=== PATIENT | male | born 1950 | race Caucasian/White ===

== ENCOUNTER 2018-10-24 17:59 | Emergency (ER) | payer MEDICARE ==
[2018-10-24] MEDS ORDERED: Fentanyl 100 MCG/2 ML VIAL ONE (18:50)
[2018-10-24] MEDS ORDERED: Ketorolac Tromethamine 30 MG/ML VIAL ONE (18:51)
[2018-10-24 18:58] LABS: Hemoglobin 10.4 g/dL (14.0-18.0); Mean Corpuscular HGB CONC 36.5 g/dL (32.0-36.0); Mean Corpuscular Hemoglobin 29.9 pg (27.0-31.0); Mean Corpuscular Volume 81.9 fL (78.0-98.0); Mean Platelet Volume 6.3 fL (7.4-10.4); Platelet Count 226 thou/uL (130-400); RBC Distribution Width 12.4 % (11.5-14.5); Red Blood Cell (RBC) Count 3.49 mill/uL (4.70-6.10); White Blood Cell (WBC) Count 7.2 thou/uL (4.8-10.8)
[2018-10-24 19:06] LABS: ALT (SGPT) 13 U/L (8-55); AST (SGOT) 18 U/L (5-34); Alkaline Phosphatase 73 U/L (40-150); Anion Gap 18 mmol/L (10-20); BUN (Urea Nitrogen) 41 mg/dL (8.4-25.7); Bilirubin, Total 0.5 mg/dL (0.2-1.2); Calc. Creatinine Clearance 0 mL/min (70-130); Calcium 10.5 mg/dL (7.8-10.44); Carbon Dioxide 29 mmol/L (23-31); Chloride 89 mmol/L (98-107); Estimated GFR-MDRD 28; Globulin 4.1 g/dL (2.4-3.5); Glucose 101 mg/dL (80-115); Protein, Total 8.1 g/dL (5.8-8.1); Sodium 132 mmol/L (136-145)
[2018-10-24 19:11] LABS: #Basophils 0.1 thou/uL (0.0-0.2); #Lymphocytes 0.3 thou/uL (1.20-3.40); #Monocytes 0.6 thou/uL (0.11-0.59); #Neutrophils 6.3 thou/uL (1.40-6.50); %Basophils 0.9 % (0.0-1.0); %Eosinophils 0.3 % (0.0-10.0); %Monocytes 7.9 % (0.0-10.0); %Neutrophils 86.9 % (42.0-75.0)
[2018-10-24 21:05] LABS: Bilirubin Small (Negative); Blood, Urine Negative (Negative); Clarity Clear (Clear); Glucose, Urine (Dipstick) Negative (Negative); Leukocyte Negative (Negative); Nitrite Negative (Negative); Protein, Urine (Dipstick) Trace mg/dL (Neg-Trace); Specific Gravity, Urine 1.015 (1.005-1.030)
== END 2018-10-24 21:40 | disposition home or self-care (01) ==
LOC: BURERS 17:59
DX: E86.0 Dehydration (principal); D64.9 Anemia, unspecified; M54.5 Low back pain; I10 Essential (primary) hypertension; I25.2 Old myocardial infarction; F17.210 Nicotine dependence, cigarettes, uncomplicated; Z79.899 Other long term (current) drug therapy
CPT/HCPCS: 80053; 81003; 85025; 96361; 96374; 96375; J1885; J3010

== ENCOUNTER 2018-11-05 11:18 | Inpatient (IN) | payer MEDICARE ==
[2018-11-05] MEDS ORDERED: Acetaminophen 325 MG TAB PO PRN (18:17)
[2018-11-05] MEDS ORDERED: Zolpidem Tartrate 5 MG TAB PO PRN (18:17)
[2018-11-05] MEDS ORDERED: Bisacodyl 10 MG SUPP PR PRN (18:17)
[2018-11-05] MEDS ORDERED: Ondansetron ODT 4 MG TAB SL PRN (18:17)
[2018-11-05] MEDS ORDERED: Ferrous Sulfate 325 MG TAB PO SCH (19:00)
[2018-11-05] MEDS: MAGNESIUM CHLORIDE 64 MG PO SCH (21:06)
[2018-11-05] MEDS: Colchicine 0.6 MG TAB PO SCH (21:27)
[2018-11-06] MEDS: Lisinopril 5 MG TAB PO SCH (09:08)
[2018-11-06] MEDS: Ferrous Sulfate 325 MG TAB PO SCH ×2 (09:08→18:17)
[2018-11-06] MEDS: Carvedilol 3.125 MG TAB PO SCH ×2 (09:09→18:16)
[2018-11-06] MEDS: Colchicine 0.6 MG TAB PO SCH ×2 (09:11→20:53)
[2018-11-06] MEDS: TURMERIC ROOT EXTRACT 500 MG PO SCH (09:14)
[2018-11-06] MEDS: MAGNESIUM CHLORIDE 64 MG PO SCH ×2 (09:14→20:54)
[2018-11-06] MEDS: GARLIC 1500 MG PO SCH (09:14)
[2018-11-06] MEDS: traMADol HCl 50 MG TAB PO PRN (09:16)
[2018-11-06] MEDS: Nicotine 21 MG PATCH TD SCH (14:31)
[2018-11-07] MEDS: Lisinopril 5 MG TAB PO SCH (08:58)
[2018-11-07] MEDS: Carvedilol 3.125 MG TAB PO SCH ×2 (09:00→17:56)
[2018-11-07] MEDS: Ferrous Sulfate 325 MG TAB PO SCH ×2 (09:01→17:56)
[2018-11-07] MEDS: GARLIC 1500 MG PO SCH (09:02)
[2018-11-07] MEDS: MAGNESIUM CHLORIDE 64 MG PO SCH ×2 (09:02→21:03)
[2018-11-07] MEDS: TURMERIC ROOT EXTRACT 500 MG PO SCH (09:02)
[2018-11-07] MEDS: traMADol HCl 50 MG TAB PO PRN (09:38)
--- NOTE | 2018-11-07 14:29 | HP ---
PRIMARY CARE PHYSICIAN: Dr. Lin in [place]. CHIEF COMPLAINT: Rehabilitation with physical, occupational and speech therapy. HISTORY OF PRESENT ILLNESS: Mr. Nolasco is a pleasant 68-year-old gentleman with coronary artery disease, cardiomyopathy with ejection fraction of 30-35% with AICD, hypertension, hyperlipidemia and supraglottic and pyriform sinus malignancy, status post chemotherapy and radiation treatment under Dr. Stark and Dr. Brown respectively with PEG tube. He was admitted twice for bleeding duodenal ulcer. His initial episode was October 25, his admitting hemoglobin was 6, he was adequately transfused with 6 units of blood. The vessel was cauterized. He was discharged with hemoglobin of 9.2. However, 2 days later, he returned for additional GI bleed. He underwent another EGD and noted further bleeding on the same site; the vessel was cauterized. He received additional blood transfusion ; his hemoglobin on discharge was 9. Due to his deconditioning from recent series of chemotherapy, radiation with poor intake causing significant weight loss complicated with life-threatening blood loss from duodenal ulcer, the patient is requiring further physical, occupational and speech therapy prior to his transitioning to home. He is working well with PT and OT. He was evaluated by dietitian today and recommended PEG tube for further nutrition. However, the patient preferred to eat, he is having pain in his ankles due to gout. He had slightly dark-colored stool this morning; of note, the patient is already taking iron supplement. PAST MEDICAL HISTORY: 1. Cardiomyopathy with EF of 30-35% status post AICD. 2. Hypertension. 3. Hyperlipidemia. 4. History of symptomatic anemia secondary to GI bleed. 5. Pyriform sinus and supraglottic malignancy. 6. Tobacco abuse. 7. Peripheral vascular disease. 8. Gout. PAST SURGICAL HISTORY: 1. AICD placement. 2. PEG tube placement. 3. Recent Mediport placement. 4. EGD x2. FAMILY HISTORY: Brother was diagnosed of lung cancer with metastasis. SOCIAL HISTORY: Known smoker, 1-2 cigarettes per day for 50 plus years. Denies recent alcohol or drug use. He lives by himself. He is a part-time employee of [email or web address] in [place]. CURRENT MEDICATIONS: 1. Tylenol 650 mg 1 tablet every 4 hours p.r.n. for pain. 2. Dulcolax 10 mg daily p.r.n. for constipation. 3. Coreg 3.125 mg 1 tablet b.i.d. 4. Colchicine 0.3 mg p.o. b.i.d. 5. Ferrous sulfate 325 mg b.i.d. with meals. 6. DuoNeb 1 neb every 6 hours p.r.n. for cough and wheezing. 7. Lisinopril 2.5 mg daily. 8. Nicotine patch 21 mg daily. 9. Zofran 4 mg every 6 hours p.r.n. for nausea and vomiting. 10. Protonix 40 mg b.i.d. 11. Tramadol 50 mg every 6 hours p.r.n. for pain. 12. Ambien 5 mg at bedtime p.r.n. for insomnia. ALLERGIES: CILOSTAZOL. REVIEW OF SYSTEMS: GENERAL: Positive for fatigue, positive for decreased appetite, positive for weight loss. Negative for fever or chills. HEENT: Negative for headaches. Negative for blurring of vision. Positive for painful and difficulty of swallowing. RESPIRATORY: Denies cough or wheezing. CARDIOVASCULAR: Negative for chest pain, negative for palpitations, negative for edema. GI: Reports occasional nausea, abdominal pain, recent history of GI bleed. Positive for loss of weight. GENITOURINARY: Negative for dysuria or polyuria. SKIN: Negative for rashes or lesions. MUSCULOSKELETAL: Positive for weakness. Positive for pain in both ankles secondary to gout. NEUROLOGICAL: Negative for numbness. Positive for weakness in both upper and lower extremities. PSYCHOLOGICAL: Denies anxiety or depression. PHYSICAL EXAMINATION: VITAL SIGNS: Blood pressure of 111/53, temperature of 98.1, pulse of 81, RR of 20, and O2 sat 97% on room air. GENERAL: The patient is alert and oriented, not in respiratory distress. HEENT: Normocephalic and atraumatic. Pale palpebral conjunctivae. Negative for tonsillopharyngeal congestion. NECK: Supple. Negative for lymphadenopathy. Negative for JVD. HEART: Regular rate and rhythm. Normal S1 and S2. No murmur, rubs, or gallops. LUNGS: Symmetrical expansion. Decreased breath sounds all throughout lung andrews. ABDOMEN: Soft. Normoactive bowel sounds. Nontender. No CVA tenderness. MUSCULOSKELETAL: Spontaneous movement of both upper and lower extremities. Positive for swelling of both ankles with mild tenderness. NEUROLOGIC: No focal deficits. Cranial nerves 2 through 12 intact. SKIN: No rashes. No lesions. Good skin turgor. PSYCH: Appropriate affect and demeanor. LABORATORY DATA: Reviewed. ASSESSMENT: 1. Physical deconditioning secondary to: a. Rapid weight loss due to dysphagia resulting from pyriform sinus and supraglottic malignancy. b. Life-threatening gastrointestinal bleed requiring multiple blood transfusions. 2. Cardiomyopathy with ejection fraction of 30-35% with automatic implantable cardioverter-defibrillator. 3. Hypertension. 4. Hyperlipidemia. 5. Gout. 6. Long history of smoking. PLAN: The patient was admitted for skilled for physical, occupational and speech therapy. Prognosis for significant improvement with reasonable time appears good. Due to his multiple comorbid condition, we will monitor for additional bleeding. He will participate with PT to address strength, range of motion, transfer training , gait transfer, and safety training with progression to home exercises. He will participate with OT to address ADLs. We will reconcile hospital medications and adjust dosage prior to his discharge. Case Management to address how the patient can be safely discharged to home. Job ID: [id number] MTDD
[2018-11-07] MEDS: Nicotine 21 MG PATCH TD SCH (15:47)
[2018-11-07] MEDS: Colchicine 0.6 MG TAB PO SCH (21:03)
[2018-11-08] MEDS: Carvedilol 3.125 MG TAB PO SCH ×2 (08:44→17:29)
[2018-11-08] MEDS: Lisinopril 5 MG TAB PO SCH (08:44)
[2018-11-08] MEDS: Ferrous Sulfate 325 MG TAB PO SCH ×2 (08:46→17:28)
[2018-11-08 09:45] LABS: #Basophils 0.1 thou/uL (0.0-0.2); #Eosinphils 0.1 thou/uL (0.0-0.7); #Lymphocytes 0.4 thou/uL (1.20-3.40); #Monocytes 0.6 thou/uL (0.11-0.59); #Neutrophils 5.3 thou/uL (1.40-6.50); %Basophils 1.5 % (0.0-1.0); %Eosinophils 2.1 % (0.0-10.0); %Lymphocytes 5.7 % (21.0-51.0); %Monocytes 9.6 % (0.0-10.0); %Neutrophils 81.1 % (42.0-75.0); Hemoglobin 10.5 g/dL (14.0-18.0); Mean Corpuscular HGB CONC 33.8 g/dL (32.0-36.0); Mean Corpuscular Hemoglobin 28.9 pg (27.0-31.0); Mean Corpuscular Volume 85.7 fL (78.0-98.0); Mean Platelet Volume 6.2 fL (7.4-10.4); Platelet Count 176 thou/uL (130-400); RBC Distribution Width 15.2 % (11.5-14.5); Red Blood Cell (RBC) Count 3.62 mill/uL (4.70-6.10); White Blood Cell (WBC) Count 6.5 thou/uL (4.8-10.8)
[2018-11-08] MEDS: GARLIC 1500 MG PO SCH (11:57)
[2018-11-08] MEDS: TURMERIC ROOT EXTRACT 500 MG PO SCH (11:58)
[2018-11-08] MEDS: MAGNESIUM CHLORIDE 64 MG PO SCH ×2 (11:58→21:49)
[2018-11-08] MEDS: Nicotine 21 MG PATCH TD SCH (14:50)
[2018-11-08] MEDS: Colchicine 0.6 MG TAB PO SCH (21:49)
[2018-11-09] MEDS: Carvedilol 3.125 MG TAB PO SCH ×2 (08:51→16:12)
[2018-11-09] MEDS: Lisinopril 5 MG TAB PO SCH (08:51)
[2018-11-09] MEDS: Ferrous Sulfate 325 MG TAB PO SCH ×2 (08:52→16:13)
[2018-11-09] MEDS: GARLIC 1500 MG PO SCH (08:54)
[2018-11-09] MEDS: MAGNESIUM CHLORIDE 64 MG PO SCH ×2 (12:11→20:03)
[2018-11-09] MEDS: TURMERIC ROOT EXTRACT 500 MG PO SCH (12:12)
[2018-11-09] MEDS: Nicotine 21 MG PATCH TD SCH (16:13)
[2018-11-09] MEDS: Colchicine 0.6 MG TAB PO SCH (20:03)
[2018-11-10] MEDS: Carvedilol 3.125 MG TAB PO SCH ×2 (09:17→17:16)
[2018-11-10] MEDS: Lisinopril 5 MG TAB PO SCH (09:17)
[2018-11-10] MEDS: Ferrous Sulfate 325 MG TAB PO SCH ×2 (09:20→17:18)
[2018-11-10] MEDS: TURMERIC ROOT EXTRACT 500 MG PO SCH (12:10)
[2018-11-10] MEDS: MAGNESIUM CHLORIDE 64 MG PO SCH ×2 (12:10→21:16)
[2018-11-10] MEDS: GARLIC 1500 MG PO SCH (12:10)
[2018-11-10] MEDS: Nicotine 21 MG PATCH TD SCH (13:56)
[2018-11-10] MEDS: traMADol HCl 50 MG TAB PO PRN (15:15)
[2018-11-10] MEDS: Colchicine 0.6 MG TAB PO SCH (21:13)
[2018-11-11] MEDS: Ferrous Sulfate 325 MG TAB PO SCH ×2 (09:02→16:09)
[2018-11-11] MEDS: Lisinopril 5 MG TAB PO SCH (09:03)
[2018-11-11] MEDS: Carvedilol 3.125 MG TAB PO SCH ×2 (09:04→16:09)
[2018-11-11] MEDS: GARLIC 1500 MG PO SCH (09:05)
[2018-11-11] MEDS: TURMERIC ROOT EXTRACT 500 MG PO SCH (09:05)
[2018-11-11] MEDS: MAGNESIUM CHLORIDE 64 MG PO SCH ×2 (09:05→22:20)
[2018-11-11] MEDS: traMADol HCl 50 MG TAB PO PRN (11:02)
[2018-11-11] MEDS: Nicotine 21 MG PATCH TD SCH (16:09)
[2018-11-11] MEDS: Colchicine 0.6 MG TAB PO SCH (20:31)
[2018-11-12] MEDS: Carvedilol 3.125 MG TAB PO SCH ×2 (09:20→18:42)
[2018-11-12] MEDS: Ferrous Sulfate 325 MG TAB PO SCH ×2 (09:20→18:42)
[2018-11-12] MEDS: GARLIC 1500 MG PO SCH (09:21)
[2018-11-12] MEDS: Lisinopril 5 MG TAB PO SCH (09:21)
[2018-11-12] MEDS: MAGNESIUM CHLORIDE 64 MG PO SCH ×2 (09:21→22:29)
[2018-11-12] MEDS: TURMERIC ROOT EXTRACT 500 MG PO SCH (09:22)
[2018-11-12] MEDS: Nicotine 21 MG PATCH TD SCH (14:45)
[2018-11-12] MEDS: Colchicine 0.6 MG TAB PO SCH (22:28)
[2018-11-12] MEDS: Senokot S 8.6-50 MG TAB PO PRN (22:38)
[2018-11-13] MEDS: Lisinopril 5 MG TAB PO SCH (10:09)
[2018-11-13] MEDS: Ferrous Sulfate 325 MG TAB PO SCH ×2 (10:09→17:23)
[2018-11-13] MEDS: Carvedilol 3.125 MG TAB PO SCH ×2 (10:10→17:23)
[2018-11-13] MEDS: GARLIC 1500 MG PO SCH (10:11)
[2018-11-13] MEDS: MAGNESIUM CHLORIDE 64 MG PO SCH ×2 (10:12→20:53)
[2018-11-13] MEDS: TURMERIC ROOT EXTRACT 500 MG PO SCH (10:13)
[2018-11-13] MEDS: Nicotine 21 MG PATCH TD SCH (15:45)
[2018-11-13] MEDS: traMADol HCl 50 MG TAB PO PRN (19:51)
[2018-11-13] MEDS: Colchicine 0.6 MG TAB PO SCH (20:52)
[2018-11-14] MEDS: Carvedilol 3.125 MG TAB PO SCH ×2 (08:35→16:35)
[2018-11-14] MEDS: Lisinopril 5 MG TAB PO SCH (08:35)
[2018-11-14] MEDS: Ferrous Sulfate 325 MG TAB PO SCH ×2 (08:39→16:36)
[2018-11-14] MEDS: TURMERIC ROOT EXTRACT 500 MG PO SCH (09:39)
[2018-11-14] MEDS: GARLIC 1500 MG PO SCH (09:40)
[2018-11-14] MEDS: MAGNESIUM CHLORIDE 64 MG PO SCH ×2 (09:40→20:58)
[2018-11-14] MEDS: Nicotine 21 MG PATCH TD SCH (15:07)
[2018-11-14] MEDS: Colchicine 0.6 MG TAB PO SCH (20:45)
[2018-11-15] MEDS: Lisinopril 5 MG TAB PO SCH (08:33)
[2018-11-15] MEDS: Carvedilol 3.125 MG TAB PO SCH ×2 (08:34→16:29)
[2018-11-15] MEDS: Ferrous Sulfate 325 MG TAB PO SCH ×2 (08:35→16:30)
[2018-11-15] MEDS: GARLIC 1500 MG PO SCH (08:35)
[2018-11-15] MEDS: MAGNESIUM CHLORIDE 64 MG PO SCH ×2 (08:35→21:27)
[2018-11-15] MEDS: TURMERIC ROOT EXTRACT 500 MG PO SCH (08:36)
[2018-11-15] MEDS: Nicotine 21 MG PATCH TD SCH (14:50)
[2018-11-15 17:13] VITALS: BMI 22.7
[2018-11-15] MEDS: Colchicine 0.6 MG TAB PO SCH (21:26)
[2018-11-15] MEDS: Senokot S 8.6-50 MG TAB PO PRN (21:32)
[2018-11-16] MEDS: Lisinopril 5 MG TAB PO SCH (08:51)
[2018-11-16] MEDS: Ferrous Sulfate 325 MG TAB PO SCH ×2 (08:52→17:24)
[2018-11-16] MEDS: Carvedilol 3.125 MG TAB PO SCH ×2 (08:52→17:25)
[2018-11-16] MEDS: TURMERIC ROOT EXTRACT 500 MG PO SCH (08:53)
[2018-11-16] MEDS: GARLIC 1500 MG PO SCH (08:53)
[2018-11-16] MEDS: MAGNESIUM CHLORIDE 64 MG PO SCH (08:53)
[2018-11-16] MEDS: Nicotine 21 MG PATCH TD SCH (15:39)
[2018-11-16] MEDS: Colchicine 0.6 MG TAB PO SCH (20:54)
[2018-11-17] MEDS: traMADol HCl 50 MG TAB PO PRN (08:53)
[2018-11-17] MEDS: Lisinopril 5 MG TAB PO SCH (08:57)
[2018-11-17] MEDS: Carvedilol 3.125 MG TAB PO SCH (08:58)
[2018-11-17] MEDS: Ferrous Sulfate 325 MG TAB PO SCH (08:59)
[2018-11-17] MEDS: Nicotine 21 MG PATCH TD SCH (14:39)
[2018-11-17 15:16] VITALS: BP 92/53; TEMP 97.7
== END 2018-11-17 14:45 | disposition home or self-care (01) | DRG 147 ==
LOC: BURMED 17:22
PROVIDERS: ADMIT Family Medicine; ATTEND Family Medicine
DX: C12 Malignant neoplasm of pyriform sinus (principal); K92.2 Gastrointestinal hemorrhage, unspecified; I42.9 Cardiomyopathy, unspecified; C32.1 Malignant neoplasm of supraglottis; R53.81 Other malaise; I10 Essential (primary) hypertension; I25.10 Atherosclerotic heart disease of native coronary artery without angina pectoris; E78.5 Hyperlipidemia, unspecified; I73.9 Peripheral vascular disease, unspecified; F17.210 Nicotine dependence, cigarettes, uncomplicated; M10.9 Gout, unspecified; Z92.21 Personal history of antineoplastic chemotherapy; Z92.3 Personal history of irradiation; Z95.810 Presence of automatic (implantable) cardiac defibrillator; Z93.1 Gastrostomy status; Z79.899 Other long term (current) drug therapy; Z88.8 Allergy status to other drugs, medicaments and biological substances; Z98.890 Other specified postprocedural states
CPT/HCPCS: 36415; 85025; J1642; J7620

== ENCOUNTER 2020-10-19 11:49 | Emergency (ER) | payer MEDICARE ==
[2020-10-19] MEDS ORDERED: Cefepime 2 GM VIAL ONE (12:51)
[2020-10-19] MEDS ORDERED: Sodium Chloride 0.9% 100 ML ONE (12:51)
[2020-10-19] MEDS ORDERED: Vancomycin 1.5 GRAM/300 ML BAG ONE (12:51)
[2020-10-19 13:01] LABS: ALT (SGPT) 13 U/L (8-55); AST (SGOT) 19 U/L (5-34); Albumin 3.7 g/dL (3.4-4.8); Alkaline Phosphatase 70 U/L (40-110); Anion Gap 15 mmol/L (10-20); BUN (Urea Nitrogen) 21 mg/dL (8.4-25.7); Bilirubin, Total 0.8 mg/dL (0.2-1.2); Calc. Creatinine Clearance 0 mL/min (70-130); Calcium 9.2 mg/dL (7.8-10.44); Carbon Dioxide 24 mmol/L (23-31); Chloride 91 mmol/L (98-107); Globulin 3.9 g/dL (2.4-3.5); Glucose 91 mg/dL (80-115); Potassium 3.4 mmol/L (3.5-5.1); Protein, Total 7.6 g/dL (5.8-8.1); Sodium 127 mmol/L (136-145)
[2020-10-19 13:07] LABS: #Lymphocytes 0.4 thou/uL (1.20-3.40); #Monocytes 0.4 thou/uL (0.11-0.59); #Neutrophils 3.8 thou/uL (1.40-6.50); %Basophils 0.6 % (0.0-1.0); %Eosinophils 0.4 % (0.0-10.0); %Lymphocytes 7.6 % (21.0-51.0); %Monocytes 8.7 % (0.0-10.0); %Neutrophils 82.7 % (42.0-75.0); Hemoglobin 9.8 g/dL (14.0-18.0); Mean Corpuscular HGB CONC 33.6 g/dL (32.0-36.0); Mean Corpuscular Hemoglobin 30.7 pg (27.0-31.0); Mean Corpuscular Volume 91.3 fL (78.0-98.0); Mean Platelet Volume 7.5 fL (7.4-10.4); Platelet Count 234 thou/uL (130-400); RBC Distribution Width 14.2 % (11.5-14.5); Red Blood Cell (RBC) Count 3.18 mill/uL (4.70-6.10); White Blood Cell (WBC) Count 4.6 thou/uL (4.8-10.8)
[2020-10-19 13:32] LABS: Lipase Less than 4 U/L (8-78)
[2020-10-19 15:30] LABS: SARS-CoV-2 NAA Rapid Test Not Detected (NotDetected)
--- NOTE | 2020-10-19 17:21 | RAD ---
PORTABLE CHEST: 10/19/20 An AP portable film at 1247 is compared with a 07/20/20 study. The heart is normal in size. There is no vascular congestion, edema, or pleural effusion. An AICD is in place. Previously, there were some areas of streaking in the lower lobes, but these are not apprec iated today. A very vague parenchymal density in the right upper lobe peripherally looks no different than before. Overall, the appearance of the chest has probably Improved slightly since the 07/20 exam . IMPRESSION: No definite acute finding. POS: HOME
== END 2020-10-19 15:20 | disposition short-term general hospital (02) ==
LOC: BURERS 11:49
DX: R53.1 Weakness (principal); D89.9 Disorder involving the immune mechanism, unspecified; I25.2 Old myocardial infarction; J44.9 Chronic obstructive pulmonary disease, unspecified; F17.210 Nicotine dependence, cigarettes, uncomplicated; I25.10 Atherosclerotic heart disease of native coronary artery without angina pectoris; Z92.21 Personal history of antineoplastic chemotherapy
CPT/HCPCS: 0240U; 71045; 83605; 83690; 84484; 85379; 87040; 93005; 94760; 96365; 96367; 99285; 36415; 80053; 84443; 85025; J0692; J3370; J3490

== ENCOUNTER 2020-11-30 12:35 | Inpatient (IN) | payer MEDICARE ==
[2020-11-30] MEDS ORDERED: Albuterol Sulfate 1.25 MG/3 ML NEB NEB PRN (18:16)
[2020-11-30] MEDS: Carvedilol 6.25 MG TAB PO SCH (21:06)
[2020-11-30] MEDS: Famotidine 20 MG TAB PO SCH (21:06)
[2020-11-30] MEDS: Magnesium Oxide 400 MG TAB PO SCH (21:07)
[2020-11-30] MEDS: Amoxicillin/Potassium Clav 875 MG TAB PO SCH (21:07)
[2020-11-30] MEDS: Mometasone/Formoterol 60 PUFF AER INH SCH (21:07)
[2020-12-01 05:17] LABS: ALT (SGPT) 9 U/L (8-55); AST (SGOT) 8 U/L (5-34); Albumin 2.9 g/dL (3.4-4.8); Alkaline Phosphatase 49 U/L (40-110); Anion Gap 13 mmol/L (10-20); BUN (Urea Nitrogen) 10 mg/dL (8.4-25.7); Bilirubin, Total 0.3 mg/dL (0.2-1.2); Calc. Creatinine Clearance 82 mL/min (70-130); Calcium 8.3 mg/dL (7.8-10.44); Carbon Dioxide 26 mmol/L (23-31); Chloride 99 mmol/L (98-107); Globulin 2.2 g/dL (2.4-3.5); Glucose 81 mg/dL (80-115); Potassium 3.8 mmol/L (3.5-5.1); Protein, Total 5.1 g/dL (5.8-8.1); Sodium 134 mmol/L (136-145)
[2020-12-01 06:00] LABS: Hemoglobin 7.5 g/dL (14.0-18.0); Mean Corpuscular HGB CONC 32.8 g/dL (32.0-36.0); Mean Corpuscular Hemoglobin 29.5 pg (27.0-31.0); Mean Corpuscular Volume 89.9 fL (78.0-98.0); Mean Platelet Volume 6.5 fL (7.4-10.4); Platelet Count 155 thou/uL (130-400); RBC Distribution Width 16.8 % (11.5-14.5); Red Blood Cell (RBC) Count 2.55 mill/uL (4.70-6.10); White Blood Cell (WBC) Count 3.2 thou/uL (4.8-10.8)
[2020-12-01 06:08] LABS: Anisocytosis SLIGHT = 6-15 cells (100X) (0-5/hpf); Band 4 % (5-11); Hypochromia SLIGHT = 6-15 cells (100X) (0-5/hpf); Lymphocytes 15 % (21-51); MDiff Complete? YES; Manual Diff?? YES; Monocytes 15 % (0-10); Myelocyte 2 % (0-0); Neutrophil 64 % (42-75)
[2020-12-01 06:09] LABS: Platelet Morphology Comment Appears Adequate; Polychromasia SLIGHT = 2-3 cells (100X) (0-2/hpf); Small Platelets SLIGHT
[2020-12-01] MEDS: Amoxicillin/Potassium Clav 875 MG TAB PO SCH ×2 (08:33→20:50)
[2020-12-01] MEDS: Ferrous Sulfate 325 MG TAB PO SCH (08:33)
[2020-12-01] MEDS: Famotidine 20 MG TAB PO SCH ×2 (08:34→20:50)
[2020-12-01] MEDS: Magnesium Oxide 400 MG TAB PO SCH ×2 (08:34→20:51)
[2020-12-01] MEDS: Folic Acid 1 MG TAB PO SCH (08:34)
[2020-12-01] MEDS: Cyanocobalamin (Vitamin B-12) 1,000 MCG TAB PO SCH (08:35)
[2020-12-01] MEDS: Carvedilol 6.25 MG TAB PO SCH ×2 (08:35→20:50)
[2020-12-01] MEDS: Midodrine HCl 5 MG TAB PO SCH (08:36)
[2020-12-01] MEDS: Mometasone/Formoterol 60 PUFF AER INH SCH ×2 (08:42→21:04)
[2020-12-01] MEDS: Sodium Chloride 1 GM TAB PO SCH (09:34)
[2020-12-01 13:10] LABS: Hemoglobin 8.1 g/dL (14.0-18.0); Platelet Count 154 thou/uL (130-400)
[2020-12-01] MEDS: Albuterol Sulfate 2.5 mg/3 ml Neb NEB PRN (13:20)
[2020-12-01 13:24] LABS: Calc. Creatinine Clearance 80 mL/min (70-130)
[2020-12-01] MEDS: Benzocaine 20% Spray 60 ML CAN FS PRN (15:09)
[2020-12-01] MEDS: Enoxaparin Sodium 40 MG/0.4 ML SYRINGE SC SCH (20:52)
[2020-12-02] MEDS: Sodium Chloride 1 GM TAB PO SCH (08:46)
[2020-12-02] MEDS: Famotidine 20 MG TAB PO SCH ×2 (08:46→21:11)
[2020-12-02] MEDS: Nicotine 14 MG PATCH TOP SCH (08:49)
[2020-12-02] MEDS: Folic Acid 1 MG TAB PO SCH (08:49)
[2020-12-02] MEDS: Ferrous Sulfate 325 MG TAB PO SCH (08:49)
[2020-12-02] MEDS: Amoxicillin/Potassium Clav 875 MG TAB PO SCH ×2 (08:49→21:12)
[2020-12-02] MEDS: Midodrine HCl 5 MG TAB PO SCH (08:49)
[2020-12-02] MEDS: Carvedilol 6.25 MG TAB PO SCH ×2 (08:50→21:11)
[2020-12-02] MEDS: Cyanocobalamin (Vitamin B-12) 1,000 MCG TAB PO SCH (08:50)
[2020-12-02] MEDS: Magnesium Oxide 400 MG TAB PO SCH ×2 (08:55→21:12)
[2020-12-02] MEDS: Mometasone/Formoterol 60 PUFF AER INH SCH ×2 (08:55→21:13)
[2020-12-02] MEDS: Enoxaparin Sodium 40 MG/0.4 ML SYRINGE SC SCH (21:13)
[2020-12-03] MEDS: Nicotine 14 MG PATCH TOP SCH (08:27)
[2020-12-03] MEDS: Folic Acid 1 MG TAB PO SCH (08:28)
[2020-12-03] MEDS: Carvedilol 6.25 MG TAB PO SCH ×2 (08:28→21:14)
[2020-12-03] MEDS: Amoxicillin/Potassium Clav 875 MG TAB PO SCH ×2 (08:28→21:06)
[2020-12-03] MEDS: Cyanocobalamin (Vitamin B-12) 1,000 MCG TAB PO SCH (08:28)
[2020-12-03] MEDS: Sodium Chloride 1 GM TAB PO SCH (08:33)
[2020-12-03] MEDS: Famotidine 20 MG TAB PO SCH ×2 (08:34→21:06)
[2020-12-03] MEDS: Ferrous Sulfate 325 MG TAB PO SCH (08:34)
[2020-12-03] MEDS: Magnesium Oxide 400 MG TAB PO SCH ×2 (08:35→21:07)
[2020-12-03] MEDS: Midodrine HCl 5 MG TAB PO SCH (08:36)
[2020-12-03] MEDS: Mometasone/Formoterol 60 PUFF AER INH SCH ×2 (08:41→21:07)
[2020-12-03] MEDS: Enoxaparin Sodium 40 MG/0.4 ML SYRINGE SC SCH (21:07)
[2020-12-03] MEDS ORDERED: Benzocaine 20% Spray 60 ML CAN ONE (21:35)
[2020-12-03] MEDS: Benzocaine 20% Spray 60 ML CAN FS PRN (21:40)
[2020-12-04 05:44] LABS: Hemoglobin 8.5 g/dL (14.0-18.0); Platelet Count 155 thou/uL (130-400)
[2020-12-04] MEDS: Mometasone/Formoterol 60 PUFF AER INH SCH ×2 (09:10→20:33)
[2020-12-04] MEDS: Famotidine 20 MG TAB PO SCH ×2 (09:13→20:32)
[2020-12-04] MEDS: Ferrous Sulfate 325 MG TAB PO SCH (09:13)
[2020-12-04] MEDS: Carvedilol 6.25 MG TAB PO SCH ×2 (09:13→20:32)
[2020-12-04] MEDS: Sodium Chloride 1 GM TAB PO SCH (09:14)
[2020-12-04] MEDS: Midodrine HCl 5 MG TAB PO SCH (09:14)
[2020-12-04] MEDS: Folic Acid 1 MG TAB PO SCH (09:15)
[2020-12-04] MEDS: Amoxicillin/Potassium Clav 875 MG TAB PO SCH ×2 (09:15→20:32)
[2020-12-04] MEDS: Magnesium Oxide 400 MG TAB PO SCH ×2 (09:15→20:32)
[2020-12-04] MEDS: Nicotine 14 MG PATCH TOP SCH (09:16)
[2020-12-04] MEDS: Cyanocobalamin (Vitamin B-12) 1,000 MCG TAB PO SCH (09:16)
[2020-12-04] MEDS: Enoxaparin Sodium 40 MG/0.4 ML SYRINGE SC SCH (20:32)
[2020-12-05] MEDS: Amoxicillin/Potassium Clav 875 MG TAB PO SCH ×2 (07:53→20:39)
[2020-12-05] MEDS: Nicotine 14 MG PATCH TOP SCH (07:53)
[2020-12-05] MEDS: Carvedilol 6.25 MG TAB PO SCH ×2 (07:53→20:40)
[2020-12-05] MEDS: Midodrine HCl 5 MG TAB PO SCH (07:56)
[2020-12-05] MEDS: Ferrous Sulfate 325 MG TAB PO SCH (07:56)
[2020-12-05] MEDS: Sodium Chloride 1 GM TAB PO SCH (07:56)
[2020-12-05] MEDS: Famotidine 20 MG TAB PO SCH ×2 (07:57→20:40)
[2020-12-05] MEDS: Magnesium Oxide 400 MG TAB PO SCH ×2 (07:57→20:40)
[2020-12-05] MEDS: Folic Acid 1 MG TAB PO SCH (07:58)
[2020-12-05] MEDS: Docusate 100 MG CAP PO SCH ×2 (08:00→20:39)
[2020-12-05] MEDS: Cyanocobalamin (Vitamin B-12) 1,000 MCG TAB PO SCH (08:00)
[2020-12-05] MEDS: Mometasone/Formoterol 60 PUFF AER INH SCH ×2 (08:09→20:41)
[2020-12-05] MEDS: Enoxaparin Sodium 40 MG/0.4 ML SYRINGE SC SCH (20:40)
[2020-12-06] MEDS: Magnesium Oxide 400 MG TAB PO SCH ×2 (09:28→20:37)
[2020-12-06] MEDS: Nicotine 14 MG PATCH TOP SCH (09:28)
[2020-12-06] MEDS: Docusate 100 MG CAP PO SCH ×2 (09:29→20:37)
[2020-12-06] MEDS: Sodium Chloride 1 GM TAB PO SCH (09:29)
[2020-12-06] MEDS: Amoxicillin/Potassium Clav 875 MG TAB PO SCH ×2 (09:29→20:37)
[2020-12-06] MEDS: Famotidine 20 MG TAB PO SCH ×2 (09:29→20:37)
[2020-12-06] MEDS: Carvedilol 6.25 MG TAB PO SCH ×2 (09:29→20:37)
[2020-12-06] MEDS: Midodrine HCl 5 MG TAB PO SCH (09:30)
[2020-12-06] MEDS: Cyanocobalamin (Vitamin B-12) 1,000 MCG TAB PO SCH (09:31)
[2020-12-06] MEDS: Folic Acid 1 MG TAB PO SCH (09:31)
[2020-12-06] MEDS: Ferrous Sulfate 325 MG TAB PO SCH (09:32)
[2020-12-06] MEDS: Mometasone/Formoterol 60 PUFF AER INH SCH ×2 (09:36→20:38)
[2020-12-06 10:58] VITALS: BMI 18.6
[2020-12-06] MEDS: Enoxaparin Sodium 40 MG/0.4 ML SYRINGE SC SCH (20:36)
[2020-12-07 05:26] LABS: Hemoglobin 8.3 g/dL (14.0-18.0); Platelet Count 132 thou/uL (130-400)
[2020-12-07] MEDS: Nicotine 14 MG PATCH TOP SCH (09:10)
[2020-12-07] MEDS: Docusate 100 MG CAP PO SCH ×2 (09:10→20:46)
[2020-12-07] MEDS: Sodium Chloride 1 GM TAB PO SCH (09:10)
[2020-12-07] MEDS: Amoxicillin/Potassium Clav 875 MG TAB PO SCH (09:11)
[2020-12-07] MEDS: Famotidine 20 MG TAB PO SCH ×2 (09:11→20:47)
[2020-12-07] MEDS: Magnesium Oxide 400 MG TAB PO SCH ×2 (09:11→20:46)
[2020-12-07] MEDS: Folic Acid 1 MG TAB PO SCH (09:11)
[2020-12-07] MEDS: Ferrous Sulfate 325 MG TAB PO SCH (09:12)
[2020-12-07] MEDS: Cyanocobalamin (Vitamin B-12) 1,000 MCG TAB PO SCH (09:12)
[2020-12-07] MEDS: Midodrine HCl 5 MG TAB PO SCH (09:12)
[2020-12-07] MEDS: Mometasone/Formoterol 60 PUFF AER INH SCH ×2 (09:14→20:59)
[2020-12-07] MEDS: Carvedilol 6.25 MG TAB PO SCH ×2 (09:30→20:47)
[2020-12-07] MEDS: Enoxaparin Sodium 40 MG/0.4 ML SYRINGE SC SCH (20:46)
[2020-12-08] MEDS: Midodrine HCl 5 MG TAB PO SCH (09:01)
[2020-12-08] MEDS: Famotidine 20 MG TAB PO SCH ×2 (09:01→21:35)
[2020-12-08] MEDS: Cyanocobalamin (Vitamin B-12) 1,000 MCG TAB PO SCH (09:02)
[2020-12-08] MEDS: Sodium Chloride 1 GM TAB PO SCH (09:02)
[2020-12-08] MEDS: Docusate 100 MG CAP PO SCH ×2 (09:02→21:35)
[2020-12-08] MEDS: Magnesium Oxide 400 MG TAB PO SCH ×2 (09:02→21:36)
[2020-12-08] MEDS: Carvedilol 6.25 MG TAB PO SCH ×2 (09:02→21:35)
[2020-12-08] MEDS: Ferrous Sulfate 325 MG TAB PO SCH (09:03)
[2020-12-08] MEDS: Folic Acid 1 MG TAB PO SCH (09:04)
[2020-12-08] MEDS: Nicotine 14 MG PATCH TOP SCH (09:05)
[2020-12-08] MEDS: Mometasone/Formoterol 60 PUFF AER INH SCH ×2 (09:09→21:37)
[2020-12-08] MEDS: Albuterol Sulfate 2.5 mg/3 ml Neb NEB PRN (09:17)
[2020-12-08] MEDS ORDERED: Amoxicillin/Potassium Clav 875 MG TAB PO SCH (13:00)
--- NOTE | 2020-12-08 13:13 | RAD ---
CHEST 2 VIEWS: Date: 12/08/2020 Comparison is made with the prior study of 11/27/2020. FINDINGS: The basilar infiltrates seen previously are still present, but have definitely improved in the interv al. The right lower lobe infiltrate, in particular, is much better, and the left lower lobe is slight ly better. There is a patchy area in the right upper lobe that shows minimal change in the interval. No new infiltrates are seen. The heart size remains normal. The lungs are hyperexpanded, but no effus ions are seen. A cardiac pacer remains in place. IMPRESSION: Improving basilar infiltrates, particularly on the right side. POS: HOME
[2020-12-08] MEDS: Enoxaparin Sodium 40 MG/0.4 ML SYRINGE SC SCH (21:34)
[2020-12-08] MEDS: Amoxicillin/Potassium Clav 875 MG TAB PO SCH (21:36)
[2020-12-09] MEDS: Ferrous Sulfate 325 MG TAB PO SCH (08:24)
[2020-12-09] MEDS: Cyanocobalamin (Vitamin B-12) 1,000 MCG TAB PO SCH (08:25)
[2020-12-09] MEDS: Docusate 100 MG CAP PO SCH ×2 (08:25→23:28)
[2020-12-09] MEDS: Amoxicillin/Potassium Clav 875 MG TAB PO SCH ×2 (08:25→23:27)
[2020-12-09] MEDS: Famotidine 20 MG TAB PO SCH ×2 (08:25→23:28)
[2020-12-09] MEDS: Sodium Chloride 1 GM TAB PO SCH (08:26)
[2020-12-09] MEDS: Folic Acid 1 MG TAB PO SCH (08:26)
[2020-12-09] MEDS: Carvedilol 6.25 MG TAB PO SCH ×2 (08:26→23:33)
[2020-12-09] MEDS: Magnesium Oxide 400 MG TAB PO SCH ×2 (08:26→23:37)
[2020-12-09] MEDS: Midodrine HCl 5 MG TAB PO SCH (08:26)
[2020-12-09] MEDS: Mometasone/Formoterol 60 PUFF AER INH SCH ×2 (08:34→23:37)
[2020-12-09] MEDS: Nicotine 14 MG PATCH TOP SCH (08:34)
[2020-12-09] MEDS: Enoxaparin Sodium 40 MG/0.4 ML SYRINGE SC SCH (23:28)
[2020-12-10 04:58] LABS: Hemoglobin 8.1 g/dL (14.0-18.0); Platelet Count 164 thou/uL (130-400)
[2020-12-10 05:01] LABS: Calc. Creatinine Clearance 68 mL/min (70-130)
[2020-12-10] MEDS: Carvedilol 6.25 MG TAB PO SCH ×2 (09:15→20:06)
[2020-12-10] MEDS: Ferrous Sulfate 325 MG TAB PO SCH (09:15)
[2020-12-10] MEDS: Folic Acid 1 MG TAB PO SCH (09:15)
[2020-12-10] MEDS: Sodium Chloride 1 GM TAB PO SCH (09:15)
[2020-12-10] MEDS: Cyanocobalamin (Vitamin B-12) 1,000 MCG TAB PO SCH (09:15)
[2020-12-10] MEDS: Docusate 100 MG CAP PO SCH ×2 (09:15→20:06)
[2020-12-10] MEDS: Midodrine HCl 5 MG TAB PO SCH (09:21)
[2020-12-10] MEDS: Magnesium Oxide 400 MG TAB PO SCH ×2 (09:21→20:06)
[2020-12-10] MEDS: Famotidine 20 MG TAB PO SCH ×2 (09:22→20:05)
[2020-12-10] MEDS: Amoxicillin/Potassium Clav 875 MG TAB PO SCH ×2 (09:22→20:06)
[2020-12-10] MEDS: Mometasone/Formoterol 60 PUFF AER INH SCH ×2 (09:23→20:10)
[2020-12-10] MEDS: Nicotine 14 MG PATCH TOP SCH (09:24)
[2020-12-10] MEDS ORDERED: Enoxaparin Sodium 100 MG/ML SYRINGE ONE (19:20)
[2020-12-10] MEDS: Enoxaparin Sodium 40 MG/0.4 ML SYRINGE SC SCH (20:07)
[2020-12-10] MEDS ORDERED: Enoxaparin Sodium 100 MG/ML SYRINGE SC SCH (21:00)
[2020-12-11] MEDS ORDERED: Carvedilol 6.25 MG TAB PO SCH (06:53)
[2020-12-11] MEDS: Magnesium Oxide 400 MG TAB PO SCH ×2 (08:22→21:43)
[2020-12-11] MEDS: Midodrine HCl 5 MG TAB PO SCH (08:22)
[2020-12-11] MEDS: Sodium Chloride 1 GM TAB PO SCH (08:23)
[2020-12-11] MEDS: Cyanocobalamin (Vitamin B-12) 1,000 MCG TAB PO SCH (08:23)
[2020-12-11] MEDS: Amoxicillin/Potassium Clav 875 MG TAB PO SCH ×2 (08:23→21:42)
[2020-12-11] MEDS: Famotidine 20 MG TAB PO SCH ×2 (08:23→21:43)
[2020-12-11] MEDS: Ferrous Sulfate 325 MG TAB PO SCH (08:23)
[2020-12-11] MEDS: Carvedilol 3.125 MG TAB PO SCH ×2 (08:23→21:42)
[2020-12-11] MEDS: Docusate 100 MG CAP PO SCH ×2 (08:23→21:44)
[2020-12-11] MEDS: Folic Acid 1 MG TAB PO SCH (08:24)
[2020-12-11] MEDS: Mometasone/Formoterol 60 PUFF AER INH SCH ×2 (08:24→21:51)
[2020-12-11] MEDS: Nicotine 14 MG PATCH TOP SCH (08:28)
[2020-12-11] MEDS ORDERED: cloNIDine 0.1 MG TAB PO PRN (19:58)
[2020-12-11] MEDS: Enoxaparin Sodium 40 MG/0.4 ML SYRINGE SC SCH (21:42)
[2020-12-12] MEDS: Midodrine HCl 5 MG TAB PO SCH (08:10)
[2020-12-12] MEDS: Ferrous Sulfate 325 MG TAB PO SCH (08:11)
[2020-12-12] MEDS: Amoxicillin/Potassium Clav 875 MG TAB PO SCH ×2 (08:11→20:55)
[2020-12-12] MEDS: Cyanocobalamin (Vitamin B-12) 1,000 MCG TAB PO SCH (08:11)
[2020-12-12] MEDS: Folic Acid 1 MG TAB PO SCH (08:11)
[2020-12-12] MEDS: Carvedilol 3.125 MG TAB PO SCH ×2 (08:11→20:45)
[2020-12-12] MEDS: Mometasone/Formoterol 60 PUFF AER INH SCH ×2 (08:12→20:55)
[2020-12-12] MEDS: Nicotine 14 MG PATCH TOP SCH (08:12)
[2020-12-12] MEDS: Docusate 100 MG CAP PO SCH ×2 (08:12→20:45)
[2020-12-12] MEDS: Magnesium Oxide 400 MG TAB PO SCH ×2 (08:12→20:45)
[2020-12-12] MEDS: Famotidine 20 MG TAB PO SCH ×2 (08:12→20:46)
[2020-12-12] MEDS: Sodium Chloride 1 GM TAB PO SCH (08:12)
[2020-12-12] MEDS: Enoxaparin Sodium 40 MG/0.4 ML SYRINGE SC SCH (20:45)
[2020-12-13 05:28] LABS: Hemoglobin 8.4 g/dL (14.0-18.0); Platelet Count 152 thou/uL (130-400)
[2020-12-13] MEDS: Famotidine 20 MG TAB PO SCH ×2 (08:16→21:05)
[2020-12-13] MEDS: Magnesium Oxide 400 MG TAB PO SCH ×2 (08:17→21:05)
[2020-12-13] MEDS: Midodrine HCl 5 MG TAB PO SCH (08:17)
[2020-12-13] MEDS: Docusate 100 MG CAP PO SCH ×2 (08:18→21:06)
[2020-12-13] MEDS: Ferrous Sulfate 325 MG TAB PO SCH (08:18)
[2020-12-13] MEDS: Folic Acid 1 MG TAB PO SCH (08:18)
[2020-12-13] MEDS: Sodium Chloride 1 GM TAB PO SCH (08:18)
[2020-12-13] MEDS: Cyanocobalamin (Vitamin B-12) 1,000 MCG TAB PO SCH (08:19)
[2020-12-13] MEDS: Nicotine 14 MG PATCH TOP SCH (08:19)
[2020-12-13] MEDS: Carvedilol 3.125 MG TAB PO SCH ×2 (08:19→21:05)
[2020-12-13] MEDS: Mometasone/Formoterol 60 PUFF AER INH SCH ×2 (08:24→21:06)
[2020-12-13] MEDS: Enoxaparin Sodium 40 MG/0.4 ML SYRINGE SC SCH (21:05)
[2020-12-14] MEDS: Magnesium Oxide 400 MG TAB PO SCH ×2 (09:11→21:04)
[2020-12-14] MEDS: Folic Acid 1 MG TAB PO SCH (09:12)
[2020-12-14] MEDS: Carvedilol 3.125 MG TAB PO SCH ×2 (09:12→21:05)
[2020-12-14] MEDS: Nicotine 14 MG PATCH TOP SCH (09:12)
[2020-12-14] MEDS: Sodium Chloride 1 GM TAB PO SCH (09:12)
[2020-12-14] MEDS: Famotidine 20 MG TAB PO SCH ×2 (09:12→21:04)
[2020-12-14] MEDS: Ferrous Sulfate 325 MG TAB PO SCH (09:12)
[2020-12-14] MEDS: Midodrine HCl 5 MG TAB PO SCH (09:13)
[2020-12-14] MEDS: Cyanocobalamin (Vitamin B-12) 1,000 MCG TAB PO SCH (09:13)
[2020-12-14] MEDS: Mometasone/Formoterol 60 PUFF AER INH SCH ×2 (09:14→21:10)
[2020-12-14] MEDS: Docusate 100 MG CAP PO SCH ×2 (09:14→21:04)
[2020-12-14] MEDS: Enoxaparin Sodium 40 MG/0.4 ML SYRINGE SC SCH (21:05)
[2020-12-14] MEDS: Acetaminophen 325 MG TAB PO PRN (21:09)
[2020-12-15] MEDS: Famotidine 20 MG TAB PO SCH ×2 (08:33→20:42)
[2020-12-15] MEDS: Midodrine HCl 5 MG TAB PO SCH (08:33)
[2020-12-15] MEDS: Sodium Chloride 1 GM TAB PO SCH (08:34)
[2020-12-15] MEDS: Magnesium Oxide 400 MG TAB PO SCH ×2 (08:34→20:42)
[2020-12-15] MEDS: Cyanocobalamin (Vitamin B-12) 1,000 MCG TAB PO SCH (08:34)
[2020-12-15] MEDS: Docusate 100 MG CAP PO SCH ×2 (08:35→20:42)
[2020-12-15] MEDS: Folic Acid 1 MG TAB PO SCH (08:35)
[2020-12-15] MEDS: Carvedilol 3.125 MG TAB PO SCH ×2 (08:35→20:42)
[2020-12-15] MEDS: Nicotine 14 MG PATCH TOP SCH (08:36)
[2020-12-15] MEDS: Ferrous Sulfate 325 MG TAB PO SCH (08:36)
[2020-12-15] MEDS: Mometasone/Formoterol 60 PUFF AER INH SCH ×2 (08:39→20:43)
[2020-12-15] MEDS: Enoxaparin Sodium 40 MG/0.4 ML SYRINGE SC SCH (20:42)
[2020-12-16 05:23] LABS: Hemoglobin 8.6 g/dL (14.0-18.0); Platelet Count 169 thou/uL (130-400)
[2020-12-16] MEDS: Nicotine 14 MG PATCH TOP SCH (08:12)
[2020-12-16] MEDS: Sodium Chloride 1 GM TAB PO SCH (08:12)
[2020-12-16] MEDS: Docusate 100 MG CAP PO SCH ×2 (08:12→20:29)
[2020-12-16] MEDS: Midodrine HCl 5 MG TAB PO SCH (08:12)
[2020-12-16] MEDS: Magnesium Oxide 400 MG TAB PO SCH ×2 (08:12→20:29)
[2020-12-16] MEDS: Famotidine 20 MG TAB PO SCH ×2 (08:12→20:29)
[2020-12-16] MEDS: Carvedilol 3.125 MG TAB PO SCH ×2 (08:12→20:29)
[2020-12-16] MEDS: Cyanocobalamin (Vitamin B-12) 1,000 MCG TAB PO SCH (08:13)
[2020-12-16] MEDS: Ferrous Sulfate 325 MG TAB PO SCH (08:13)
[2020-12-16] MEDS: Folic Acid 1 MG TAB PO SCH (08:13)
[2020-12-16] MEDS: Mometasone/Formoterol 60 PUFF AER INH SCH ×2 (08:15→20:30)
[2020-12-16] MEDS: Enoxaparin Sodium 40 MG/0.4 ML SYRINGE SC SCH (20:29)
[2020-12-17] MEDS: Cyanocobalamin (Vitamin B-12) 1,000 MCG TAB PO SCH (09:38)
[2020-12-17] MEDS: Folic Acid 1 MG TAB PO SCH (09:38)
[2020-12-17] MEDS: Nicotine 14 MG PATCH TOP SCH (09:38)
[2020-12-17] MEDS: Famotidine 20 MG TAB PO SCH ×2 (09:38→20:52)
[2020-12-17] MEDS: Magnesium Oxide 400 MG TAB PO SCH ×2 (09:38→20:52)
[2020-12-17] MEDS: Ferrous Sulfate 325 MG TAB PO SCH (09:39)
[2020-12-17] MEDS: Sodium Chloride 1 GM TAB PO SCH (09:39)
[2020-12-17] MEDS: Carvedilol 3.125 MG TAB PO SCH ×2 (09:39→20:52)
[2020-12-17] MEDS: Mometasone/Formoterol 60 PUFF AER INH SCH ×2 (09:39→21:38)
[2020-12-17] MEDS: Docusate 100 MG CAP PO SCH ×2 (09:39→20:52)
[2020-12-17] MEDS: Midodrine HCl 5 MG TAB PO SCH (09:39)
[2020-12-17] MEDS: Enoxaparin Sodium 40 MG/0.4 ML SYRINGE SC SCH (20:52)
[2020-12-18] MEDS ORDERED: Carvedilol 3.125 MG TAB ONE (08:57)
[2020-12-18] MEDS ORDERED: Docusate 100 MG CAP ONE (08:57)
[2020-12-18] MEDS ORDERED: Folic Acid 1 MG TAB ONE (08:58)
[2020-12-18] MEDS ORDERED: Magnesium Oxide 400 MG TAB PO ONE (08:58)
[2020-12-18] MEDS ORDERED: Ferrous Sulfate 325 MG TAB ONE (08:58)
[2020-12-18] MEDS ORDERED: Famotidine 20 MG TAB ONE (08:59)
[2020-12-18] MEDS: Sodium Chloride 1 GM TAB PO SCH (09:00)
[2020-12-18] MEDS: Nicotine 14 MG PATCH TOP SCH (09:00)
[2020-12-18] MEDS: Docusate 100 MG CAP PO SCH ×2 (09:00→20:20)
[2020-12-18] MEDS: Ferrous Sulfate 325 MG TAB PO SCH (09:00)
[2020-12-18] MEDS: Midodrine HCl 5 MG TAB PO SCH (09:00)
[2020-12-18] MEDS: Famotidine 20 MG TAB PO SCH ×2 (09:00→20:20)
[2020-12-18] MEDS: Folic Acid 1 MG TAB PO SCH (09:00)
[2020-12-18] MEDS: Cyanocobalamin (Vitamin B-12) 1,000 MCG TAB PO SCH (09:00)
[2020-12-18] MEDS: Magnesium Oxide 400 MG TAB PO SCH ×2 (09:00→20:20)
[2020-12-18] MEDS: Carvedilol 3.125 MG TAB PO SCH ×2 (09:00→20:20)
[2020-12-18] MEDS: Mometasone/Formoterol 60 PUFF AER INH SCH ×2 (09:00→20:22)
[2020-12-18] MEDS ORDERED: Midodrine HCl 5 MG TAB ONE (09:01)
[2020-12-18] MEDS ORDERED: Sodium Chloride 1 GM TAB ONE (09:01)
[2020-12-18] MEDS ORDERED: Nicotine 14 MG PATCH ONE (09:02)
[2020-12-18] MEDS ORDERED: Cyanocobalamin (Vitamin B-12) 1,000 MCG TAB ONE (09:02)
[2020-12-18] MEDS ORDERED: Enoxaparin Sodium 40 MG/0.4 ML SYRINGE ONE (20:03)
[2020-12-18] MEDS: Enoxaparin Sodium 40 MG/0.4 ML SYRINGE SC SCH (20:21)
[2020-12-19 05:12] LABS: Hemoglobin 8.9 g/dL (14.0-18.0); Platelet Count 179 thou/uL (130-400)
[2020-12-19] MEDS: Cyanocobalamin (Vitamin B-12) 1,000 MCG TAB PO SCH (08:18)
[2020-12-19] MEDS: Magnesium Oxide 400 MG TAB PO SCH ×2 (08:18→20:26)
[2020-12-19] MEDS: Midodrine HCl 5 MG TAB PO SCH (08:19)
[2020-12-19] MEDS: Sodium Chloride 1 GM TAB PO SCH (08:19)
[2020-12-19] MEDS: Famotidine 20 MG TAB PO SCH ×2 (08:19→20:25)
[2020-12-19] MEDS: Docusate 100 MG CAP PO SCH ×2 (08:20→20:25)
[2020-12-19] MEDS: Ferrous Sulfate 325 MG TAB PO SCH (08:20)
[2020-12-19] MEDS: Carvedilol 3.125 MG TAB PO SCH ×2 (08:20→20:26)
[2020-12-19] MEDS: Folic Acid 1 MG TAB PO SCH (08:20)
[2020-12-19] MEDS: Mometasone/Formoterol 60 PUFF AER INH SCH ×2 (08:21→20:26)
[2020-12-19] MEDS: Nicotine 14 MG PATCH TOP SCH (08:22)
[2020-12-19] MEDS: Enoxaparin Sodium 40 MG/0.4 ML SYRINGE SC SCH (20:25)
[2020-12-20] MEDS: Folic Acid 1 MG TAB PO SCH (08:04)
[2020-12-20] MEDS: Ferrous Sulfate 325 MG TAB PO SCH (08:04)
[2020-12-20] MEDS: Docusate 100 MG CAP PO SCH ×2 (08:04→20:44)
[2020-12-20] MEDS: Nicotine 14 MG PATCH TOP SCH (08:04)
[2020-12-20] MEDS: Cyanocobalamin (Vitamin B-12) 1,000 MCG TAB PO SCH (08:05)
[2020-12-20] MEDS: Magnesium Oxide 400 MG TAB PO SCH ×2 (08:05→20:44)
[2020-12-20] MEDS: Carvedilol 3.125 MG TAB PO SCH ×2 (08:05→20:44)
[2020-12-20] MEDS: Sodium Chloride 1 GM TAB PO SCH (08:05)
[2020-12-20] MEDS: Famotidine 20 MG TAB PO SCH ×2 (08:05→20:43)
[2020-12-20] MEDS: Midodrine HCl 5 MG TAB PO SCH (08:06)
[2020-12-20] MEDS: Mometasone/Formoterol 60 PUFF AER INH SCH ×2 (08:10→20:44)
[2020-12-20] MEDS: Enoxaparin Sodium 40 MG/0.4 ML SYRINGE SC SCH (20:43)
[2020-12-21] MEDS: Nicotine 14 MG PATCH TOP SCH (08:30)
[2020-12-21] MEDS: Sodium Chloride 1 GM TAB PO SCH (08:30)
[2020-12-21] MEDS: Magnesium Oxide 400 MG TAB PO SCH ×2 (08:31→21:46)
[2020-12-21] MEDS: Midodrine HCl 5 MG TAB PO SCH (08:31)
[2020-12-21] MEDS: Carvedilol 3.125 MG TAB PO SCH ×2 (08:32→21:46)
[2020-12-21] MEDS: Docusate 100 MG CAP PO SCH ×2 (08:32→21:45)
[2020-12-21] MEDS: Ferrous Sulfate 325 MG TAB PO SCH (08:32)
[2020-12-21] MEDS: Cyanocobalamin (Vitamin B-12) 1,000 MCG TAB PO SCH (08:32)
[2020-12-21] MEDS: Folic Acid 1 MG TAB PO SCH (08:33)
[2020-12-21] MEDS: Famotidine 20 MG TAB PO SCH ×2 (08:34→21:46)
[2020-12-21] MEDS: Mometasone/Formoterol 60 PUFF AER INH SCH ×2 (08:37→21:51)
[2020-12-21] MEDS: Acetaminophen 325 MG TAB PO PRN (11:59)
[2020-12-21] MEDS ORDERED: Colchicine 0.6 MG TAB PO SCH ×2 (13:15→14:00)
[2020-12-21] MEDS ORDERED: predniSONE 20 MG TAB PO SCH (13:15)
[2020-12-21] MEDS: Enoxaparin Sodium 40 MG/0.4 ML SYRINGE SC SCH (21:46)
[2020-12-22 05:54] LABS: Hemoglobin 9.1 g/dL (14.0-18.0); Platelet Count 182 thou/uL (130-400)
[2020-12-22 05:56] LABS: Calc. Creatinine Clearance 68 mL/min (70-130)
[2020-12-22] MEDS: Docusate 100 MG CAP PO SCH ×2 (08:45→21:51)
[2020-12-22] MEDS: Famotidine 20 MG TAB PO SCH ×2 (08:45→21:51)
[2020-12-22] MEDS: Nicotine 14 MG PATCH TOP SCH (08:45)
[2020-12-22] MEDS: Magnesium Oxide 400 MG TAB PO SCH ×2 (08:45→21:51)
[2020-12-22] MEDS: Midodrine HCl 5 MG TAB PO SCH (08:46)
[2020-12-22] MEDS: Ferrous Sulfate 325 MG TAB PO SCH (08:46)
[2020-12-22] MEDS: Carvedilol 3.125 MG TAB PO SCH ×2 (08:47→21:51)
[2020-12-22] MEDS: predniSONE 20 MG TAB PO SCH (08:47)
[2020-12-22] MEDS: Folic Acid 1 MG TAB PO SCH (08:47)
[2020-12-22] MEDS: Cyanocobalamin (Vitamin B-12) 1,000 MCG TAB PO SCH (08:47)
[2020-12-22] MEDS: Mometasone/Formoterol 60 PUFF AER INH SCH ×2 (08:50→21:50)
[2020-12-22] MEDS: Sodium Chloride 1 GM TAB PO SCH (08:53)
[2020-12-22] MEDS: Enoxaparin Sodium 40 MG/0.4 ML SYRINGE SC SCH (21:51)
[2020-12-23 07:15] VITALS: BP 117/70; TEMP 98.8
[2020-12-23] MEDS: Ferrous Sulfate 325 MG TAB PO SCH (08:17)
[2020-12-23] MEDS: Docusate 100 MG CAP PO SCH (08:17)
[2020-12-23] MEDS: Magnesium Oxide 400 MG TAB PO SCH (08:17)
[2020-12-23] MEDS: Midodrine HCl 5 MG TAB PO SCH (08:17)
[2020-12-23] MEDS: predniSONE 20 MG TAB PO SCH (08:17)
[2020-12-23] MEDS: Famotidine 20 MG TAB PO SCH (08:17)
[2020-12-23] MEDS: Folic Acid 1 MG TAB PO SCH (08:17)
[2020-12-23] MEDS: Cyanocobalamin (Vitamin B-12) 1,000 MCG TAB PO SCH (08:17)
[2020-12-23] MEDS: Carvedilol 3.125 MG TAB PO SCH (08:18)
[2020-12-23] MEDS: Nicotine 14 MG PATCH TOP SCH (08:18)
[2020-12-23] MEDS: Mometasone/Formoterol 60 PUFF AER INH SCH (08:19)
[2020-12-23] MEDS: Sodium Chloride 1 GM TAB PO SCH (08:27)
--- NOTE | 2020-12-24 18:15 | DIS ---
DATE OF ADMISSION: 11/30/2020 DATE OF DISCHARGE: 12/23/2020 ADMISSION DIAGNOSES: Physical deconditioning, aspiration pneumonia. SECONDARY DIAGNOSES: Chronic hyponatremia, chronic anemia, chronic systolic congestive heart failure, and pyriform sinus cancer. PROCEDURES: 12/08/2020, chest x-ray showed improving basilar infiltrates, particularly on the right side. HOSPITAL COURSE: This is a 70-year-old male, who presented to our [facility] facility at [facility] to participate with Physical Therapy and Occupational Therapy and complete a course of oral antibiotics. Prior to his arrival at our facility, he was admitted and treated at [facility] in [place] for aspiration pneumonia; this was initially treated with cefepime and vancomycin and his antibiotic course was titrated to oral Augmentin prior to arrival at our facility. The patient did complete the prescribed oral antibiotic course, however, continued to have a mild productive cough followed by chest x-ray imaging as above; therefore, his oral antibiotics were extended to resolution of his symptoms. The patient remained afebrile during his stay. Labs remained stable as well. He was able to improve upon his functional status while working with Physical Therapy and Occupational Therapy to the point where he is now able to discharge back to his home setting with further therapy to be provided by [facility]. The patient did have down titration of his Coreg dose to the lowest dose of 3.125 mg b.i.d. secondary to low trending blood pressure. DISPOSITION: The patient will discharge to his home setting and may follow up with myself in the clinic in a week. He is to have further therapy provided by [facility]. DISCHARGE MEDICATIONS: Include, 1. Albuterol nebs 2.5 mg q.4 hours p.r.n. 2. Carvedilol 3.125 mg b.i.d. 3. Vitamin B12 of 1000 mcg p.o. daily. 4. Famotidine 20 mg b.i.d. 5. Ferrous sulfate 325 mg daily. 6. Folic acid 1 mg daily. 7. Magnesium oxide 400 mg b.i.d. 8. Midodrine 2.5 mg daily. 9. Dulera 100 mcg/5 mcg inhaler one puff b.i.d. Total time spent in preparation of discharge of this patient greater than 30 minutes. Job ID: [id number]
== END 2020-12-23 12:53 | disposition home or self-care (01) | DRG 177 ==
LOC: BURMED 16:31
PROVIDERS: ADMIT Family Medicine; ATTEND Family Medicine
DX: J69.0 Pneumonitis due to inhalation of food and vomit (principal); D61.810 Antineoplastic chemotherapy induced pancytopenia; I50.22 Chronic systolic (congestive) heart failure; E87.1 Hypo-osmolality and hyponatremia; E44.1 Mild protein-calorie malnutrition; Z68.1 Body mass index [BMI] 19.9 or less, adult; R53.81 Other malaise; H54.61 Unqualified visual loss, right eye, normal vision left eye; C12 Malignant neoplasm of pyriform sinus; M10.9 Gout, unspecified; I25.10 Atherosclerotic heart disease of native coronary artery without angina pectoris; J44.9 Chronic obstructive pulmonary disease, unspecified; F17.200 Nicotine dependence, unspecified, uncomplicated; E78.5 Hyperlipidemia, unspecified; I73.9 Peripheral vascular disease, unspecified; I27.20 Pulmonary hypertension, unspecified; Z95.810 Presence of automatic (implantable) cardiac defibrillator; Z95.5 Presence of coronary angioplasty implant and graft; Z79.51 Long term (current) use of inhaled steroids; Z79.899 Other long term (current) drug therapy
CPT/HCPCS: 36415; 71046; 80053; 82565; 85014; 85018; 85025; 85049; 94664; J1650; J7512; J7611

== ENCOUNTER 2021-06-02 10:29 | Inpatient (IN) | payer MEDICARE ==
[2021-06-02 11:02] LABS: #Basophils 0.1 thou/uL (0.0-0.2); #Lymphocytes 0.6 thou/uL (1.20-3.40); #Neutrophils 7.8 thou/uL (1.40-6.50); %Basophils 1.1 % (0.0-1.0); %Eosinophils 0.3 % (0.0-10.0); %Lymphocytes 6.7 % (21.0-51.0); %Monocytes 10.3 % (0.0-10.0); %Neutrophils 81.6 % (42.0-75.0); Mean Corpuscular HGB CONC 32.9 g/dL (32.0-36.0); Mean Corpuscular Volume 88.1 fL (78.0-98.0); Mean Platelet Volume 4.9 fL (7.4-10.4); Platelet Count 323 thou/uL (130-400); RBC Distribution Width 15.5 % (11.5-14.5); Red Blood Cell (RBC) Count 3.11 mill/uL (4.70-6.10); White Blood Cell (WBC) Count 9.5 thou/uL (4.8-10.8)
[2021-06-02 11:10] LABS: INR-International Normal Ratio 1.2
[2021-06-02 11:11] LABS: PTT 39.5 sec (22.9-36.1)
[2021-06-02 11:20] LABS: ALT (SGPT) 11 U/L (8-55); AST (SGOT) 14 U/L (5-34); Albumin 3.4 g/dL (3.4-4.8); Alkaline Phosphatase 76 U/L (40-110); Anion Gap 14 mmol/L (10-20); BUN (Urea Nitrogen) 11 mg/dL (8.4-25.7); Bilirubin, Total 0.3 mg/dL (0.2-1.2); CK (CPK) 92 U/L (30-200); Calc. Creatinine Clearance 0 mL/min (70-130); Calcium 8.9 mg/dL (7.8-10.44); Carbon Dioxide 25 mmol/L (23-31); Chloride 92 mmol/L (98-107); Globulin 4.3 g/dL (2.4-3.5); Glucose 110 mg/dL (80-115); Magnesium 1.1 mg/dL (1.6-2.6); Potassium 3.9 mmol/L (3.5-5.1); Protein, Total 7.7 g/dL (5.8-8.1); Sodium 127 mmol/L (136-145)
[2021-06-02] MEDS ORDERED: Magnesium 2 GM/50 ML BAG (IN WATER) ONE (11:52)
[2021-06-02] MEDS ORDERED: Piperacillin/Tazobactam 4.5 GM VIAL ONE (11:52)
[2021-06-02] MEDS ORDERED: Sodium Chloride 0.9% 100 ML ONE (11:52)
[2021-06-02 12:51] LABS: SARS-CoV-2 NAA Rapid Test Not Detected (NotDetected)
[2021-06-02 13:34] LABS: Bilirubin Negative (Negative); Blood, Urine Negative (Negative); Clarity Clear (Clear); Glucose, Urine (Dipstick) Negative (Negative); Ketone, Urine Negative (Negative); Leukocyte Negative (Negative); Nitrite Negative (Negative); Protein, Urine (Dipstick) Negative (Neg-Trace); Urobilinogen 0.2 mg/dL (Less than 2)
[2021-06-02] MEDS ORDERED: Ondansetron ODT 4 MG TAB SL PRN (14:15)
[2021-06-02] MEDS ORDERED: Acetaminophen 325 MG TAB PO PRN (14:15)
[2021-06-02] MEDS ORDERED: Ondansetron PF 4 MG/2 ML Vial IVP PRN (14:15)
[2021-06-02] MEDS ORDERED: Albuterol Sulfate 1.25 MG/3 ML NEB NEB PRN (15:32)
[2021-06-02] MEDS ORDERED: Senokot S 8.6-50 MG TAB PO PRN (15:38)
[2021-06-02] MEDS ORDERED: Bisacodyl 5 MG TAB PO PRN (15:38)
[2021-06-02] MEDS ORDERED: Piperacillin/Tazobactam 3.375 GM in Sodium Chloride 0.9% 100 ML IVPB SCH (16:00)
[2021-06-02] MEDS: Sodium Chloride 0.9% 1,000 ML IV SCH (17:32)
[2021-06-02] MEDS: Nicotine 14 MG PATCH TD SCH (17:48)
[2021-06-02] MEDS: Albuterol Sulfate 2.5 mg/3 ml Neb NEB PRN (20:16)
[2021-06-02] MEDS: Carvedilol 3.125 MG TAB PO SCH (20:18)
[2021-06-02] MEDS: Famotidine 20 MG TAB PO SCH (20:18)
[2021-06-02] MEDS: Magnesium Oxide 400 MG TAB PO SCH (20:18)
[2021-06-02] MEDS: Vancomycin HCl 1 GM in Sodium Chloride 0.9% 250 ML 250 ML IVPB SCH (23:24)
[2021-06-03] MEDS: Piperacillin/Tazobactam 3.375 GM in Sodium Chloride 0.9% 100 ML IVPB SCH ×3 (01:22→16:49)
[2021-06-03] MEDS: Mometasone/Formoterol 60 PUFF AER INH SCH ×3 (01:23→21:23)
[2021-06-03] MEDS: Albuterol Sulfate 2.5 mg/3 ml Neb NEB PRN ×2 (03:05→19:13)
[2021-06-03 05:46] LABS: #Basophils 0.1 thou/uL (0.0-0.2); #Lymphocytes 0.4 thou/uL (1.20-3.40); #Monocytes 0.7 thou/uL (0.11-0.59); #Neutrophils 6.7 thou/uL (1.40-6.50); %Basophils 1.4 % (0.0-1.0); %Eosinophils 0.5 % (0.0-10.0); %Lymphocytes 5.3 % (21.0-51.0); %Monocytes 8.2 % (0.0-10.0); %Neutrophils 84.6 % (42.0-75.0); Hemoglobin 8.2 g/dL (14.0-18.0); Mean Corpuscular HGB CONC 33.3 g/dL (32.0-36.0); Mean Corpuscular Hemoglobin 28.8 pg (27.0-31.0); Mean Corpuscular Volume 86.5 fL (78.0-98.0); Mean Platelet Volume 5.1 fL (7.4-10.4); Platelet Count 284 thou/uL (130-400); RBC Distribution Width 15.6 % (11.5-14.5); Red Blood Cell (RBC) Count 2.83 mill/uL (4.70-6.10)
[2021-06-03 05:50] LABS: Anion Gap 13 mmol/L (10-20); BUN (Urea Nitrogen) 8 mg/dL (8.4-25.7); Calc. Creatinine Clearance 73 mL/min (70-130); Calcium 8.2 mg/dL (7.8-10.44); Carbon Dioxide 25 mmol/L (23-31); Chloride 99 mmol/L (98-107); Glucose 112 mg/dL (80-115); Potassium 3.6 mmol/L (3.5-5.1); Sodium 133 mmol/L (136-145)
[2021-06-03] MEDS: Famotidine 20 MG TAB PO SCH ×2 (08:32→21:22)
[2021-06-03] MEDS: Cyanocobalamin (Vitamin B-12) 1,000 MCG TAB PO SCH (08:32)
[2021-06-03] MEDS: Ferrous Sulfate 325 MG TAB PO SCH (08:32)
[2021-06-03] MEDS: Magnesium Oxide 400 MG TAB PO SCH ×2 (08:32→21:22)
[2021-06-03] MEDS: Carvedilol 3.125 MG TAB PO SCH ×2 (08:32→21:23)
[2021-06-03] MEDS: Midodrine HCl 5 MG TAB PO SCH (08:33)
[2021-06-03] MEDS: Folic Acid 1 MG TAB PO SCH (08:33)
[2021-06-03] MEDS: Vancomycin HCl 1 GM in Sodium Chloride 0.9% 250 ML 250 ML IVPB SCH (13:19)
[2021-06-03] MEDS: Nicotine 14 MG PATCH TD SCH (16:46)
[2021-06-03] MEDS: Sodium Chloride 0.9% 1,000 ML IV SCH (21:32)
[2021-06-04] MEDS: Vancomycin HCl 1 GM in Sodium Chloride 0.9% 250 ML 250 ML IVPB SCH ×3 (01:30→15:25)
[2021-06-04 01:53] LABS: Vancomycin, Trough 13.6 ug/mL
[2021-06-04] MEDS: Piperacillin/Tazobactam 3.375 GM in Sodium Chloride 0.9% 100 ML IVPB SCH ×3 (02:14→17:51)
[2021-06-04] MEDS: traMADol HCl 50 MG TAB PO PRN ×3 (03:46→20:12)
[2021-06-04 06:58] LABS: #Basophils 0.1 thou/uL (0.0-0.2); #Eosinphils 0.1 thou/uL (0.0-0.7); #Lymphocytes 0.6 thou/uL (1.20-3.40); #Monocytes 0.9 thou/uL (0.11-0.59); #Neutrophils 6.6 thou/uL (1.40-6.50); %Basophils 0.8 % (0.0-1.0); %Eosinophils 0.7 % (0.0-10.0); %Lymphocytes 6.7 % (21.0-51.0); %Monocytes 10.7 % (0.0-10.0); %Neutrophils 81.1 % (42.0-75.0); Hemoglobin 7.4 g/dL (14.0-18.0); Mean Corpuscular HGB CONC 32.7 g/dL (32.0-36.0); Mean Corpuscular Hemoglobin 28.9 pg (27.0-31.0); Mean Corpuscular Volume 88.4 fL (78.0-98.0); Mean Platelet Volume 5.2 fL (7.4-10.4); Platelet Count 266 thou/uL (130-400); RBC Distribution Width 15.8 % (11.5-14.5); Red Blood Cell (RBC) Count 2.56 mill/uL (4.70-6.10); White Blood Cell (WBC) Count 8.1 thou/uL (4.8-10.8)
[2021-06-04 07:01] LABS: Anion Gap 10 mmol/L (10-20); BUN (Urea Nitrogen) 6 mg/dL (8.4-25.7); Carbon Dioxide 27 mmol/L (23-31); Chloride 99 mmol/L (98-107); Potassium 3.7 mmol/L (3.5-5.1); Sodium 132 mmol/L (136-145)
[2021-06-04 07:02] LABS: Calc. Creatinine Clearance 73 mL/min (70-130); Calcium 8.3 mg/dL (7.8-10.44); Glucose 113 mg/dL (80-115); Magnesium 1.3 mg/dL (1.6-2.6)
[2021-06-04] MEDS: Magnesium Oxide 400 MG TAB PO SCH ×2 (09:56→20:14)
[2021-06-04] MEDS: Famotidine 20 MG TAB PO SCH ×2 (09:56→20:14)
[2021-06-04] MEDS: Carvedilol 3.125 MG TAB PO SCH ×2 (09:57→20:14)
[2021-06-04] MEDS: Midodrine HCl 5 MG TAB PO SCH (09:57)
[2021-06-04] MEDS: Folic Acid 1 MG TAB PO SCH (09:57)
[2021-06-04] MEDS: Ferrous Sulfate 325 MG TAB PO SCH (09:57)
[2021-06-04] MEDS: Cyanocobalamin (Vitamin B-12) 1,000 MCG TAB PO SCH (09:58)
[2021-06-04] MEDS: Mometasone/Formoterol 60 PUFF AER INH SCH ×2 (09:59→20:14)
[2021-06-04 14:22] LABS: Vancomycin, Trough 14.8 ug/mL
[2021-06-04] MEDS: Nicotine 14 MG PATCH TD SCH (17:45)
[2021-06-05] MEDS: Piperacillin/Tazobactam 3.375 GM in Sodium Chloride 0.9% 100 ML IVPB SCH ×3 (01:12→19:19)
[2021-06-05] MEDS: Vancomycin HCl 1 GM in Sodium Chloride 0.9% 250 ML 250 ML IVPB SCH (03:18)
[2021-06-05] MEDS: traMADol HCl 50 MG TAB PO PRN (03:27)
[2021-06-05 06:39] LABS: Anion Gap 11 mmol/L (10-20); BUN (Urea Nitrogen) 9 mg/dL (8.4-25.7); Calc. Creatinine Clearance 71 mL/min (70-130); Calcium 8.6 mg/dL (7.8-10.44); Carbon Dioxide 29 mmol/L (23-31); Chloride 94 mmol/L (98-107); Glucose 91 mg/dL (80-115); Potassium 4.2 mmol/L (3.5-5.1); Sodium 130 mmol/L (136-145)
[2021-06-05 07:02] LABS: #Basophils 0.1 thou/uL (0.0-0.2); #Eosinphils 0.1 thou/uL (0.0-0.7); #Lymphocytes 0.5 thou/uL (1.20-3.40); #Neutrophils 7.6 thou/uL (1.40-6.50); %Basophils 1.3 % (0.0-1.0); %Monocytes 10.3 % (0.0-10.0); %Neutrophils 82.4 % (42.0-75.0); Mean Corpuscular Hemoglobin 28.6 pg (27.0-31.0); Mean Corpuscular Volume 89.4 fL (78.0-98.0); Mean Platelet Volume 5.8 fL (7.4-10.4); Platelet Count 299 thou/uL (130-400); RBC Distribution Width 15.9 % (11.5-14.5); Red Blood Cell (RBC) Count 2.81 mill/uL (4.70-6.10); White Blood Cell (WBC) Count 9.2 thou/uL (4.8-10.8)
[2021-06-05] MEDS: Magnesium Oxide 400 MG TAB PO SCH ×2 (09:47→22:06)
[2021-06-05] MEDS: Ferrous Sulfate 325 MG TAB PO SCH (09:47)
[2021-06-05] MEDS: Cyanocobalamin (Vitamin B-12) 1,000 MCG TAB PO SCH (09:48)
[2021-06-05] MEDS: Famotidine 20 MG TAB PO SCH ×2 (09:48→22:07)
[2021-06-05] MEDS: Midodrine HCl 5 MG TAB PO SCH (09:48)
[2021-06-05] MEDS: Carvedilol 3.125 MG TAB PO SCH ×2 (09:48→22:07)
[2021-06-05] MEDS: Folic Acid 1 MG TAB PO SCH (09:48)
[2021-06-05] MEDS: Mometasone/Formoterol 60 PUFF AER INH SCH ×2 (09:52→22:08)
[2021-06-05] MEDS ORDERED: Ondansetron PF 4 MG/2 ML Vial IVP PRN (11:40)
[2021-06-05] MEDS ORDERED: Acetaminophen 325 MG TAB PO PRN ×2 (11:41→11:45)
[2021-06-05] MEDS ORDERED: Ondansetron ODT 4 MG TAB SL PRN (11:42)
[2021-06-05 14:17] LABS: Vancomycin, Trough 18.8 ug/mL
[2021-06-05] MEDS ORDERED: Vancomycin HCl 1 GM in Sodium Chloride 0.9% 250 ML 250 ML IVPB SCH (15:00)
[2021-06-05 15:33] VITALS: BMI 18.7
[2021-06-05] MEDS: Nicotine 14 MG PATCH TD SCH (16:03)
[2021-06-05] MEDS: Indomethacin 25 mg Capsule PO PRN (16:04)
[2021-06-06] MEDS: Piperacillin/Tazobactam 3.375 GM in Sodium Chloride 0.9% 100 ML IVPB SCH ×2 (01:54→09:32)
[2021-06-06] MEDS: Indomethacin 25 mg Capsule PO PRN (04:14)
[2021-06-06 06:30] VITALS: BP 114/71; TEMP 98.3
[2021-06-06] MEDS: Magnesium Oxide 400 MG TAB PO SCH (09:30)
[2021-06-06] MEDS: Famotidine 20 MG TAB PO SCH (09:30)
[2021-06-06] MEDS: Midodrine HCl 5 MG TAB PO SCH (09:31)
[2021-06-06] MEDS: Carvedilol 3.125 MG TAB PO SCH (09:31)
[2021-06-06] MEDS: Cyanocobalamin (Vitamin B-12) 1,000 MCG TAB PO SCH (09:31)
[2021-06-06] MEDS: Ferrous Sulfate 325 MG TAB PO SCH (09:31)
[2021-06-06] MEDS: Folic Acid 1 MG TAB PO SCH (09:32)
[2021-06-06] MEDS: Mometasone/Formoterol 60 PUFF AER INH SCH (09:34)
[2021-06-06] MEDS: traMADol HCl 50 MG TAB PO PRN (10:04)
[2021-06-06] MEDS ORDERED: Vancomycin HCl 750 MG in Sodium Chloride 0.9% 250 ML 250 ML IVPB SCH (15:00)
[2021-06-06] MEDS ORDERED: Vancomycin HCl 500 MG in Sodium Chloride 0.9% 100 ML IVPB SCH (16:00)
== END 2021-06-06 12:42 | disposition swing bed (61) | DRG 194 ==
LOC: BURERS 10:29 → BURMED 12:29
PROVIDERS: ADMIT Family Medicine; ATTEND Family Medicine
DX: J18.9 Pneumonia, unspecified organism (principal); E87.1 Hypo-osmolality and hyponatremia; J44.0 Chronic obstructive pulmonary disease with (acute) lower respiratory infection; Z20.822 Contact with and (suspected) exposure to COVID-19; F17.210 Nicotine dependence, cigarettes, uncomplicated; C12 Malignant neoplasm of pyriform sinus; I50.9 Heart failure, unspecified; I25.10 Atherosclerotic heart disease of native coronary artery without angina pectoris; M10.9 Gout, unspecified; D63.8 Anemia in other chronic diseases classified elsewhere; E83.42 Hypomagnesemia; I73.9 Peripheral vascular disease, unspecified; Z95.810 Presence of automatic (implantable) cardiac defibrillator; Z88.8 Allergy status to other drugs, medicaments and biological substances; Z79.51 Long term (current) use of inhaled steroids; Z79.899 Other long term (current) drug therapy; Z95.5 Presence of coronary angioplasty implant and graft
CPT/HCPCS: 0240U; 36415; 71045; 80048; 80053; 80202; 81003; 82550; 83605; 83735; 83935; 84300; 84443; 84484; 85025; 85610; 85730; 87040; 93005; 96365; 96367; 96368; J2543; J3370; J3475; J3490; J7050; J7611

== ENCOUNTER 2021-06-06 12:40 | Inpatient (IN) | payer MEDICARE ==
[2021-06-06 15:11] VITALS: BMI 19.2
[2021-06-06] MEDS ORDERED: Ondansetron PF 4 MG/2 ML Vial IVP PRN (15:34)
[2021-06-06] MEDS ORDERED: Albuterol Sulfate 1.25 MG/3 ML NEB NEB PRN (15:34)
[2021-06-06] MEDS ORDERED: Ondansetron ODT 4 MG TAB PO PRN (16:28)
[2021-06-06] MEDS: Piperacillin/Tazobactam 3.375 GM in Sodium Chloride 0.9% 100 ML IVPB SCH (17:48)
[2021-06-06] MEDS: Carvedilol 3.125 MG TAB PO SCH (17:49)
[2021-06-06] MEDS ORDERED: Acetaminophen 325 MG TAB PO PRN (19:03)
[2021-06-06] MEDS ORDERED: [UNRECOGNIZED DRUG - OTHER] IVP SCH (21:00)
[2021-06-06] MEDS ORDERED: PIPERACILLIN TAZO DEXTROSE ISO IVP SCH (21:00)
[2021-06-06] MEDS: Vancomycin HCl 750 MG in Sodium Chloride 0.9% 250 ML 250 ML IVPB SCH (21:46)
[2021-06-06] MEDS: Vancomycin HCl 500 MG in Sodium Chloride 0.9% 100 ML IVPB SCH (21:47)
[2021-06-06] MEDS: Senokot S 8.6-50 MG TAB PO SCH (21:47)
[2021-06-06] MEDS: Famotidine 20 MG TAB PO SCH (21:48)
[2021-06-06] MEDS: Indomethacin 25 mg Capsule PO SCH (21:52)
[2021-06-07] MEDS: Mometasone/Formoterol 60 PUFF AER INH SCH ×3 (01:03→21:19)
[2021-06-07] MEDS: Piperacillin/Tazobactam 3.375 GM in Sodium Chloride 0.9% 100 ML IVPB SCH ×3 (02:05→17:30)
[2021-06-07] MEDS: Bisacodyl 5 MG TAB PO SCH (09:23)
[2021-06-07] MEDS: Folic Acid 1 MG TAB PO SCH (09:24)
[2021-06-07] MEDS: Famotidine 20 MG TAB PO SCH ×2 (09:24→21:19)
[2021-06-07] MEDS: Midodrine HCl 5 MG TAB PO SCH (09:24)
[2021-06-07] MEDS: Magnesium Oxide 400 MG TAB PO SCH (09:24)
[2021-06-07] MEDS: Ferrous Sulfate 325 MG TAB PO SCH (09:24)
[2021-06-07] MEDS: Senokot S 8.6-50 MG TAB PO SCH ×2 (09:24→21:18)
[2021-06-07] MEDS: Carvedilol 3.125 MG TAB PO SCH ×2 (09:26→17:30)
[2021-06-07] MEDS: Indomethacin 25 mg Capsule PO SCH ×2 (09:26→21:18)
[2021-06-07] MEDS: Cyanocobalamin (Vitamin B-12) 1,000 MCG TAB PO SCH (09:26)
[2021-06-07] MEDS: traMADol HCl 50 MG TAB PO PRN (12:21)
[2021-06-07 19:56] LABS: Vancomycin, Trough 14.9 ug/mL
[2021-06-07] MEDS: Vancomycin HCl 750 MG in Sodium Chloride 0.9% 250 ML 250 ML IVPB SCH (21:17)
[2021-06-07] MEDS: Vancomycin HCl 500 MG in Sodium Chloride 0.9% 100 ML IVPB SCH (21:17)
[2021-06-08] MEDS: Piperacillin/Tazobactam 3.375 GM in Sodium Chloride 0.9% 100 ML IVPB SCH ×3 (00:46→17:09)
[2021-06-08] MEDS: traMADol HCl 50 MG TAB PO PRN ×2 (04:27→18:21)
[2021-06-08] MEDS: Indomethacin 25 mg Capsule PO SCH ×2 (08:46→21:45)
[2021-06-08] MEDS: Cyanocobalamin (Vitamin B-12) 1,000 MCG TAB PO SCH (08:47)
[2021-06-08] MEDS: Famotidine 20 MG TAB PO SCH ×2 (08:47→21:45)
[2021-06-08] MEDS: Magnesium Oxide 400 MG TAB PO SCH (08:47)
[2021-06-08] MEDS: Midodrine HCl 5 MG TAB PO SCH (08:48)
[2021-06-08] MEDS: Folic Acid 1 MG TAB PO SCH (08:48)
[2021-06-08] MEDS: Carvedilol 3.125 MG TAB PO SCH ×2 (08:48→17:10)
[2021-06-08] MEDS: Bisacodyl 5 MG TAB PO SCH (08:51)
[2021-06-08] MEDS: Ferrous Sulfate 325 MG TAB PO SCH (08:51)
[2021-06-08] MEDS: Mometasone/Formoterol 60 PUFF AER INH SCH ×2 (08:52→21:46)
[2021-06-08] MEDS: Senokot S 8.6-50 MG TAB PO SCH ×2 (13:30→21:45)
[2021-06-08] MEDS: Vancomycin HCl 500 MG in Sodium Chloride 0.9% 100 ML IVPB SCH (21:44)
[2021-06-08] MEDS: Vancomycin HCl 750 MG in Sodium Chloride 0.9% 250 ML 250 ML IVPB SCH (21:45)
[2021-06-09] MEDS: traMADol HCl 50 MG TAB PO PRN ×3 (01:18→20:54)
[2021-06-09] MEDS: Piperacillin/Tazobactam 3.375 GM in Sodium Chloride 0.9% 100 ML IVPB SCH ×3 (01:21→16:34)
[2021-06-09] MEDS: Cyanocobalamin (Vitamin B-12) 1,000 MCG TAB PO SCH (08:09)
[2021-06-09] MEDS: Magnesium Oxide 400 MG TAB PO SCH (08:09)
[2021-06-09] MEDS: Midodrine HCl 5 MG TAB PO SCH (08:10)
[2021-06-09] MEDS: Folic Acid 1 MG TAB PO SCH (08:10)
[2021-06-09] MEDS: Indomethacin 25 mg Capsule PO SCH ×2 (08:10→20:50)
[2021-06-09] MEDS: Carvedilol 3.125 MG TAB PO SCH ×2 (08:10→16:35)
[2021-06-09] MEDS: Ferrous Sulfate 325 MG TAB PO SCH (08:13)
[2021-06-09] MEDS: Bisacodyl 5 MG TAB PO SCH (08:13)
[2021-06-09] MEDS: Famotidine 20 MG TAB PO SCH ×2 (08:17→20:50)
[2021-06-09] MEDS: Mometasone/Formoterol 60 PUFF AER INH SCH ×2 (08:18→20:51)
[2021-06-09] MEDS: Senokot S 8.6-50 MG TAB PO SCH ×2 (08:21→20:51)
[2021-06-09] MEDS: Vancomycin HCl 750 MG in Sodium Chloride 0.9% 250 ML 250 ML IVPB SCH (20:52)
[2021-06-09] MEDS: Vancomycin HCl 500 MG in Sodium Chloride 0.9% 100 ML IVPB SCH (20:53)
[2021-06-10] MEDS: Piperacillin/Tazobactam 3.375 GM in Sodium Chloride 0.9% 100 ML IVPB SCH ×3 (00:23→17:12)
[2021-06-10 06:19] LABS: #Basophils 0.1 thou/uL (0.0-0.2); #Eosinphils 0.1 thou/uL (0.0-0.7); #Lymphocytes 0.7 thou/uL (1.20-3.40); #Monocytes 0.6 thou/uL (0.11-0.59); #Neutrophils 5.9 thou/uL (1.40-6.50); %Basophils 1.3 % (0.0-1.0); %Eosinophils 1.3 % (0.0-10.0); %Lymphocytes 9.3 % (21.0-51.0); %Neutrophils 80.1 % (42.0-75.0); Hemoglobin 7.9 g/dL (14.0-18.0); Mean Corpuscular HGB CONC 32.1 g/dL (32.0-36.0); Mean Corpuscular Hemoglobin 28.5 pg (27.0-31.0); Mean Corpuscular Volume 88.7 fL (78.0-98.0); Mean Platelet Volume 4.9 fL (7.4-10.4); Platelet Count 288 thou/uL (130-400); RBC Distribution Width 15.8 % (11.5-14.5); Red Blood Cell (RBC) Count 2.76 mill/uL (4.70-6.10); White Blood Cell (WBC) Count 7.4 thou/uL (4.8-10.8)
[2021-06-10 06:29] LABS: Anion Gap 13 mmol/L (10-20); BUN (Urea Nitrogen) 19 mg/dL (8.4-25.7); Calc. Creatinine Clearance 50 mL/min (70-130); Carbon Dioxide 28 mmol/L (23-31); Chloride 99 mmol/L (98-107); Potassium 4.5 mmol/L (3.5-5.1); Sodium 135 mmol/L (136-145)
[2021-06-10 06:30] LABS: Calcium 9.1 mg/dL (7.8-10.44); Glucose 72 mg/dL (80-115)
[2021-06-10] MEDS: Indomethacin 25 mg Capsule PO SCH ×2 (08:32→21:02)
[2021-06-10] MEDS: Midodrine HCl 5 MG TAB PO SCH (08:33)
[2021-06-10] MEDS: Cyanocobalamin (Vitamin B-12) 1,000 MCG TAB PO SCH (08:33)
[2021-06-10] MEDS: Famotidine 20 MG TAB PO SCH ×2 (08:33→21:02)
[2021-06-10] MEDS: Folic Acid 1 MG TAB PO SCH (08:33)
[2021-06-10] MEDS: Magnesium Oxide 400 MG TAB PO SCH (08:33)
[2021-06-10] MEDS: Carvedilol 3.125 MG TAB PO SCH ×2 (08:33→17:11)
[2021-06-10] MEDS: traMADol HCl 50 MG TAB PO PRN ×2 (08:37→21:07)
[2021-06-10] MEDS: Bisacodyl 5 MG TAB PO SCH (08:46)
[2021-06-10] MEDS: Ferrous Sulfate 325 MG TAB PO SCH (08:46)
[2021-06-10] MEDS: Mometasone/Formoterol 60 PUFF AER INH SCH ×2 (08:47→21:03)
[2021-06-10] MEDS: Senokot S 8.6-50 MG TAB PO SCH ×2 (08:49→21:00)
[2021-06-10] MEDS ORDERED: Nicotine 14 MG PATCH TOP SCH (14:00)
[2021-06-10 20:39] LABS: Vancomycin, Trough 16.2 ug/mL
[2021-06-10] MEDS: Vancomycin HCl 750 MG in Sodium Chloride 0.9% 250 ML 250 ML IVPB SCH (21:01)
[2021-06-10] MEDS: Vancomycin HCl 500 MG in Sodium Chloride 0.9% 100 ML IVPB SCH (21:09)
[2021-06-11] MEDS: Piperacillin/Tazobactam 3.375 GM in Sodium Chloride 0.9% 100 ML IVPB SCH ×2 (00:30→08:59)
[2021-06-11 05:02] VITALS: BP 131/74; TEMP 98.1
[2021-06-11] MEDS: Carvedilol 3.125 MG TAB PO SCH (08:54)
[2021-06-11] MEDS: Magnesium Oxide 400 MG TAB PO SCH (08:54)
[2021-06-11] MEDS: Famotidine 20 MG TAB PO SCH (08:54)
[2021-06-11] MEDS: Indomethacin 25 mg Capsule PO SCH (08:54)
[2021-06-11] MEDS: Cyanocobalamin (Vitamin B-12) 1,000 MCG TAB PO SCH (08:54)
[2021-06-11] MEDS: Midodrine HCl 5 MG TAB PO SCH (08:54)
[2021-06-11] MEDS: Folic Acid 1 MG TAB PO SCH (08:54)
[2021-06-11] MEDS: Mometasone/Formoterol 60 PUFF AER INH SCH (08:56)
[2021-06-11] MEDS: Ferrous Sulfate 325 MG TAB PO SCH (09:00)
[2021-06-11] MEDS: Senokot S 8.6-50 MG TAB PO SCH (09:00)
[2021-06-11] MEDS: Bisacodyl 5 MG TAB PO SCH (09:00)
== END 2021-06-11 13:16 | disposition home health service (06) | DRG 194 ==
LOC: BURMED 12:40
PROVIDERS: ADMIT Family Medicine; ATTEND Family Medicine
DX: J18.9 Pneumonia, unspecified organism (principal); J44.1 Chronic obstructive pulmonary disease with (acute) exacerbation; E87.1 Hypo-osmolality and hyponatremia; J44.0 Chronic obstructive pulmonary disease with (acute) lower respiratory infection; L02.11 Cutaneous abscess of neck; I25.10 Atherosclerotic heart disease of native coronary artery without angina pectoris; C12 Malignant neoplasm of pyriform sinus; I73.9 Peripheral vascular disease, unspecified; F17.210 Nicotine dependence, cigarettes, uncomplicated; R53.81 Other malaise; M1A.0710 Idiopathic chronic gout, right ankle and foot, without tophus (tophi); D63.8 Anemia in other chronic diseases classified elsewhere; Z88.8 Allergy status to other drugs, medicaments and biological substances; Z79.51 Long term (current) use of inhaled steroids; Z85.118 Personal history of other malignant neoplasm of bronchus and lung; Z80.1 Family history of malignant neoplasm of trachea, bronchus and lung; Z95.5 Presence of coronary angioplasty implant and graft; Z98.890 Other specified postprocedural states; Z95.810 Presence of automatic (implantable) cardiac defibrillator
CPT/HCPCS: 36415; 80048; 80202; 85025; J2543; J3370; J3490; J7050

== ENCOUNTER 2021-09-11 23:56 | Emergency (ER) | payer MEDICARE ==
[2021-09-12] MEDS ORDERED: Dextrose 50% Abboject 50 ML SYRINGE ONE (07:30)
== END 2021-09-12 03:07 | disposition home or self-care (01) ==
LOC: BURERS 23:56
DX: E86.0 Dehydration (principal); R05.9 Cough, unspecified; I25.10 Atherosclerotic heart disease of native coronary artery without angina pectoris; I25.2 Old myocardial infarction; D50.9 Iron deficiency anemia, unspecified; F17.210 Nicotine dependence, cigarettes, uncomplicated; Z79.899 Other long term (current) drug therapy
CPT/HCPCS: 99284